=== PATIENT | female | born 1995 | race African-American/Black ===

== ENCOUNTER → 2021-07-04 | Day surgery (SDC) | payer BC | END | disposition home or self-care (01) | LOC: JRADUS-SUR 08:55 | PROVIDERS: ATTEND Specialist | PROC: 0H9U3ZX Drainage of Left Breast, Percutaneous Approach, Diagnostic (ICD-10-PCS; principal; 2021-07-04) | DX: D24.2 Benign neoplasm of left breast (principal); N60.12 Diffuse cystic mastopathy of left breast | CPT/HCPCS: 19083; 87899; A4648 ==